=== PATIENT | male | born 1955 | race Caucasian/White ===

== ENCOUNTER 2020-07-26 19:59 | Emergency (ER) | payer OTHER ==
[~2020-07-26] VITALS: Ht 167.6 cm; Wt 90.7 kg
[2020-07-26 20:15] VITALS: Ht 167.6 cm; Wt 90.7 kg
[2020-07-26 21:54] LABS: PLATELET COUNT 169 x10^3mcL (152-348); RED CELL DISTRIBUTION WIDTH 13.9 % (12.1-16.2)
[2020-07-26 21:55] LABS: BASOPHIL % 2.2 % (0.2-1.5)
[2020-07-26 21:56] LABS: UA SPECIFIC GRAVITY 1.015 (1.005-1.035); microscopic required? YES; urine erythrocyte 3+ (NEGATIVE)
[2020-07-26 22:06] LABS: CALCIUM 12.4 mg/dL (8.5-10.1); CARBON DIOXIDE 24.4 mmol/L (21-32); CREATININE SERUM 1.8 mg/dL (0.7-1.3); POTASSIUM SERUM 3.2 mmol/L (3.5-5.1)
[2020-07-27 00:21] VITALS: BP 151/90
== END 2020-07-27 00:21 | disposition home or self-care (01) ==
LOC: ED 19:59
PROVIDERS: Student in an Organized Health Care Education/Training Program
DX: R33.9 Retention of urine, unspecified (principal); R31.9 Hematuria, unspecified